=== PATIENT | male | born 1995 | race Caucasian/White ===

== ENCOUNTER 2021-03-27 01:23 | Emergency (ER) | payer MEDICAID ==
[~2021-03-27] VITALS: Ht 180.3 cm; Wt 79.8 kg
[2021-03-27 01:34] VITALS: BP 108/72
--- NOTE | 2021-03-27 01:37 | NUR ---
TO LOBBY A/W BED AMBULATORY
--- NOTE | 2021-03-27 03:05 | NUR ---
PT AMBULATED TO BED #5
--- NOTE | 2021-03-27 03:09 | NUR ---
PT BIB SELF FOR C/C "BUMPS ON PENIS" X 1 DAY. DENIES PAIN. +ITCHING. PT REPORTS CURRENTLY SEXUALLY ACTIVE. NEGATIVE N/V/D, FEVER, CHILLS, SOB, CP. MED HX: DENIES ALLERGIES: DENIES
[2021-03-27] MEDS ORDERED: KETO2CRE3 TP (04:41)
--- NOTE | 2021-03-27 04:44 | NUR ---
ERMD AT BEDSIDE.
[2021-03-27 04:45] VITALS: BP 108/72
--- NOTE | 2021-03-27 04:45 | NUR ---
Patient discharged with v/s stable. Written and verbal after care instructions given and explained. Patient alert, oriented and verbalized understanding of instructions. Ambulatory with steady gait. All questions addressed prior to discharge. ID band removed. Patient advised to follow up with PMD. Rx of KETOCONAZOLE given. Patient educated on indication of medication including possible reaction and side effects. Opportunity to ask questions provided and answered.
== END 2021-03-27 04:45 | disposition home or self-care (01) ==
LOC: MED 01:23
DX: B37.42 Candidal balanitis (principal); Z79.899 Other long term (current) drug therapy
CPT/HCPCS: 99283

== ENCOUNTER 2021-07-26 23:25 | Emergency (ER) | payer MEDICAID ==
[~2021-07-26] VITALS: Ht 180.3 cm; Wt 81.2 kg
[~2021-07-26 23:25] MED LIST: KETO2CRE3 TP
[2021-07-26 23:30] VITALS: BP 126/72
--- NOTE | 2021-07-26 23:33 | NUR ---
TO LOBBY A/W BED AMBULATORY
--- NOTE | 2021-07-27 01:45 | NUR ---
SEEN AND EXAMINED BY MAC
[2021-07-27] MEDS ORDERED: KETOROLAC 60 MG/2 ML VIAL IM ONE (01:50)
[2021-07-27] MEDS ORDERED: ACET-8386 PO (02:01)
[2021-07-27] MEDS ORDERED: IBUP-2213 PO (02:01)
[2021-07-27 02:15] VITALS: BP 126/72
--- NOTE | 2021-07-27 02:15 | NUR ---
Patient discharged with v/s stable. Written and verbal after care instructions given and explained. Patient alert, oriented and verbalized understanding of instructions. Ambulatory with steady gait. All questions addressed prior to discharge. ID band removed. Patient advised to follow up with PMD. Rx of MOTRIN , NORCO given. Patient educated on indication of medication including possible reaction and side effects. Opportunity to ask questions provided and answered.
== END 2021-07-27 02:15 | disposition home or self-care (01) ==
LOC: MED 23:25
DX: M54.59 Other low back pain (principal)
CPT/HCPCS: 72100; 96372; 99283; J1885